=== PATIENT | female | born 1990 | race Caucasian/White ===

== ENCOUNTER 2018-09-08 16:46 | Emergency (ER) | payer SELFPAY ==
[2018-09-08 17:07] VITALS: BP 142/87
--- NOTE | 2018-09-08 17:37 | ED ---
GI/ HPI - HPI Summary HPI Summary: 27 yr old female with the complaints of dysuria, increased frequency and hesitancy or urination. No vaginal discharge or bleeding. No fever or chills. She has had mild low back pain. No NV. She thinks she has a UTI. - History of Current Complaint Chief Complaint: UCGU Time Seen by Provider: 09/08/18 17:16 Stated Complaint: URINARY COMPLAINT Hx Last Menstrual Period: 08/11/18 Pain Intensity: 6 - Allergy/Home Medications Allergies/Adverse Reactions: Allergies Allergy/AdvReac Type Severity Reaction Status Date / Time No Known Allergies Allergy Verified 09/08/18 17:07 Home Medications: Home Medications NK [No Home Medications Reported] 09/08/18 [History Confirmed 09/08/18] PMH/Surg Hx/FS Hx/Imm Hx Respiratory History: Reports: Hx Asthma Infectious Disease History: No Infectious Disease History: Denies: Traveled Outside the [place] in Last 30 Days - Family History Known Family History: Positive: None - Social History Occupation: Employed Full-time Alcohol Use: Occasionally Substance Use Type: Reports: None Smoking Status (MU): Never Smoked Tobacco Review of Systems Constitutional: Negative Positive: dysuria, frequency. Negative: discharge All Other Systems Reviewed And Are Negative: Yes Physical Exam Triage Information Reviewed: Yes Vital Signs On Initial Exam: Initial Vitals Temp Pulse Resp BP Pulse Ox 97.8 F 83 16 142/87 100 09/08/18 17:04 09/08/18 17:04 09/08/18 17:04 09/08/18 17:04 09/08/18 17:04 Vital Signs Reviewed: Yes Appearance: Positive: Well-Appearing, No Pain Distress Skin: Positive: Warm, Skin Color Reflects Adequate Perfusion Head/Face: Positive: Normal Head/Face Inspection Eyes: Positive: EOMI ENT: Positive: Normal ENT inspection Neck: Positive: Nontender Respiratory/Lung Sounds: Positive: Clear to Auscultation, Breath Sounds Present Cardiovascular: Positive: RRR. Negative: Murmur Abdomen Description: Negative: CVA Tenderness (R), CVA Tenderness (L), Distended Musculoskeletal: Positive: Strength/ROM Intact Neurological: Positive: Sensory/Motor Intact, Alert, Oriented to Person Place, Time, CN Intact II-III Psychiatric: Positive: Normal Diagnostics - Vital Signs Vital Signs Temp Pulse Resp BP Pulse Ox 09/08/18 17:04 97.8 F 83 16 142/87 100 - Laboratory Lab Results: Lab Results 09/08/18 09/08/18 Range/Units 17:19 17:21 POC Urine Color Yellow POC Urine Clarity Clear POC Urine pH 6.0 (5-9) POC Ur Specif Ada 1.025 (1.010-1.030) POC Urine Protein Negative (Negative) POC Ur Glucose (UA) Negative (Negative) POC Urine Ketones Negative (Negative) POC Urine Blood Trace-intact A (Negative) POC Urine Nitrite Negative (Negative) POC Urine Bilirubin Negative (Negative) POC Urine Urobilinogen 0.2 (Negative) POC U Leukocyte Esteras Negative (Negative) POC Ur Test Negative (Negative) Lab Statement: Any lab studies that have been ordered have been reviewed, and results considered in the medical decision making process. GIGU Course/Dx - Course Course Of Treatment: 27 yr old with dysuria. She does not want a pelvic exam. Sending gc chlamydia on her urine. She plans to diamond picker over the counter yeast treatment. HCG neg, and urine dip neg for leuks or nitrites. - Diagnoses Provider Diagnoses: Dysuria, Hypertension Discharge - Sign-Out/Discharge Documenting (check all that apply): Patient Departure All imaging exams completed and their final reports reviewed: No Studies - Discharge Plan Condition: Good Disposition: HOME Patient Education Materials: Dysuria (ED), Hypertension (ED) Referrals: No Primary Care Phys,NOPCP [Primary Care Provider] - [facility] [place] [facility] REFERRAL [Outside] - 2 Days - Billing Disposition and Condition Condition: GOOD Disposition: Home
[2018-09-10 13:15] LABS: Neisseria gonorrhoeae (GC) RNA Negative (Negative)
== END 2018-09-08 18:03 | disposition home or self-care (01) ==
LOC: UCCORT 16:46
DX: R30.0 Dysuria (principal); I10 Essential (primary) hypertension
CPT/HCPCS: 81003; 84702; 87086; 87491; 87591; 99201; G0463

== ENCOUNTER 2019-05-25 19:40 | Emergency (ER) | payer SELFPAY ==
[2019-05-25 20:24] VITALS: BP 132/89
--- NOTE | 2019-05-25 21:18 | UC ---
Hand/Wrist HPI - HPI Summary HPI Summary: 28-year-old female presents with complaints of left wrist pain. States at approximately 7:30 this morning she tripped in her bedroom and fell onto a outstretched arm. Complains of pain and swelling to the radial aspect of her wrist. States pain worsens with lifting or movement. Nonradiating. Range of motion limited by pain. Has taken acetaminophen and ibuprofen with some relief in the pain. Denies any numbness or tingling. - History Of Current Complaint Chief Complaint: UCUpperExtremity Stated Complaint: S/P FALL, LEFT WRIST COMPLAINT Time Seen by Provider: 05/25/19 20:50 Hx Obtained From: Patient Hx Last Menstrual Period: on implanon control Pain Intensity: 6 - Allergies/Home Medications Allergies/Adverse Reactions: Allergies Allergy/AdvReac Type Severity Reaction Status Date / Time No Known Allergies Allergy Verified 05/25/19 20:19 Home Medications: Home Medications NK [No Home Medications Reported] 09/08/18 [History Confirmed 05/25/19] PMH/Surg Hx/FS Hx/Imm Hx Previously Healthy: Yes - Denies significant PMH - Surgical History Surgical History: None - Family History Family History: Denies significant FMH - Social History Occupation: Employed Full-time Lives: Alone Alcohol Use: Weekly Substance Use Type: None Smoking Status (MU): Never Smoked Tobacco Review of Systems All Other Systems Reviewed And Are Negative: Yes Constitutional: Positive: Negative Skin: Negative: Bruising Respiratory: Positive: Negative Cardiovascular: Positive: Negative Gastrointestinal: Positive: Negative Genitourinary: Positive: Negative Motor: Negative: Weakness Neurovascular: Negative: Decreased Sensation Musculoskeletal: Positive: Other: - See HPI Neurological/Mental Status: Positive: Negative Is Patient Immunocompromised?: No Physical Exam - Summary Physical Exam Summary: GENERAL APPEARANCE: Well developed, well nourished, alert and cooperative, and appears to be in no acute distress. CARDIAC: Normal S1 and S2. No S3, S4 or murmurs. Rhythm is regular. There is no peripheral edema, cyanosis or pallor. Extremities are warm and well perfused. Capillary refill is less than 2 seconds. Peripheral pulses intact. LUNGS: Clear to auscultation without rales, rhonchi, wheezing or diminished breath sounds. ABDOMEN: Positive bowel sounds. Soft, nondistended, nontender. No guarding or rebound. No masses or hepatosplenomegally. MUSKULOSKELETAL: Normal muscular development. Normal gait. EXTREMITIES: Tenderness to the radial wrist with mild edema. No gross deformity , ecchymosis, or erythema. Full passive range of motion. Circulation and sensation intact SKIN: Skin normal color, texture and turgor with no lesions or eruptions. Triage Information Reviewed: Yes Vital Signs: Initial Vital Signs Temp 97.5 F 05/25/19 20:20 Pulse 88 05/25/19 20:20 Resp 16 05/25/19 20:20 BP 132/89 05/25/19 20:20 Pulse Ox 100 05/25/19 20:20 Vital Signs Reviewed: Yes Diagnostics - Radiology No standard instances Radiology Interpretation Completed By: ED Physician - No acute osseous injury Hand/Wrist Course/Dx - Course Course Of Treatment: 28-year-old female presents with complaints of left wrist pain. States at approximately 7:30 this morning she tripped in her bedroom and fell onto a outstretched arm. Complains of pain and swelling to the radial aspect of her wrist. States pain worsens with lifting or movement. Nonradiating. Range of motion limited by pain. Has taken acetaminophen and ibuprofen with some relief in the pain. Denies any numbness or tingling. Afebrile. Vital signs stable. Patient had tenderness to the radial wrist with mild edema. No gross deformity , ecchymosis, or erythema. Full passive range of motion. Circulation and sensation intact. Preliminary reading of the x-ray showed no acute osseous injury. Reviewed results with the patient. Recommending conservative treatment for a left wrist sprain including [id number] analgesics and RICE. She was placed in a cockup wrist splint by the RN. She is to follow-up with orthopedic surgery in 7 days if symptoms are not improving. Anticipatory guidance and warning symptoms reviewed with the patient. Verbalizes understanding and agrees with plan of care. - Differential Dx/Diagnosis Differential Diagnosis/HQI/PQRI: Contusion, Fracture, Sprain Provider Diagnosis: Left wrist sprain Discharge ED - Sign-Out/Discharge Documenting (check all that apply): Patient Departure All imaging exams completed and their final reports reviewed: No - Discharge Plan Condition: Stable Disposition: HOME Patient Education Materials: Wrist Sprain (ED) Referrals: No Primary Care Phys,NOPCP [Primary Care Provider] - Edwardo Navarro MD [Medical Doctor] - 7 Days (If no improvement in symptoms. Call for appointment.) Additional Instructions: The x-ray performed in the clinic today showed no evidence of a fracture. The x -ray will be reviewed by the radiologist tomorrow and we will notify you may see anything that changes your plan of care. Rest the wrist as much as possible. Wear the cock up wrist splint was applied in the clinic until you are pain free. You may remove to shower but should wear at all other times. Apply ice to the affected area for 15-20 minutes at least 4 times a day to help with the pain and swelling. Elevate the arm to help reduce swelling. Take acetaminophen (Tylenol) or ibuprofen (Advil, Motrin) according to directions as needed for pain. Follow up with orthopedic surgery in 7 days if symptoms do not improve. Seek immediate medical attention if you have severe pain not managed with pain medication, develop numbness or tingling in the hand or fingers, or have any worsening of symptoms. - Billing Disposition and Condition Condition: STABLE Disposition: Home - Attestation Statements Provider Attestation: This patient was not seen by me. I was available for consult. Chart reviewed. HILDA
--- NOTE | 2019-05-26 12:11 | UC ---
- Progress Note Progress Note: Per Dr. Garcia: left wrist is negative exam. Course/Dx - Diagnoses Provider Diagnoses: Left wrist sprain Discharge ED - Sign-Out/Discharge Documenting (check all that apply): Post-Discharge Follow Up All imaging exams completed and their final reports reviewed: Yes - Discharge Plan Condition: Stable Disposition: HOME Patient Education Materials: Wrist Sprain (ED) Referrals: Edwardo Navarro MD [Medical Doctor] - 7 Days (If no improvement in symptoms. Call for appointment.) No Primary Care Phys,NOPCP [Primary Care Provider] - Additional Instructions: The x-ray performed in the clinic today showed no evidence of a fracture. The x -ray will be reviewed by the radiologist tomorrow and we will notify you may see anything that changes your plan of care. Rest the wrist as much as possible. Wear the cock up wrist splint was applied in the clinic until you are pain free. You may remove to shower but should wear at all other times. Apply ice to the affected area for 15-20 minutes at least 4 times a day to help with the pain and swelling. Elevate the arm to help reduce swelling. Take acetaminophen (Tylenol) or ibuprofen (Advil, Motrin) according to directions as needed for pain. Follow up with orthopedic surgery in 7 days if symptoms do not improve. Seek immediate medical attention if you have severe pain not managed with pain medication, develop numbness or tingling in the hand or fingers, or have any worsening of symptoms. - Billing Disposition and Condition Condition: STABLE Disposition: Home
== END 2019-05-25 21:32 | disposition home or self-care (01) ==
LOC: UCCORT 19:40
DX: S63.502A Unspecified sprain of left wrist, initial encounter (principal); W01.0XXA Fall on same level from slipping, tripping and stumbling without subsequent striking against object, initial encounter; Y92.092 Bedroom in other non-institutional residence as the place of occurrence of the external cause
CPT/HCPCS: 99212; G0463